=== PATIENT | female | born 1965 | race Caucasian/White ===

== ENCOUNTER 2019-09-21 19:53 | Emergency (ER) | payer OTHER, SELFPAY ==
[2019-09-21 19:55] VITALS: BP 132/58; PULSE 68; RESP 16; TEMP 36.9; O2SAT 100; BMI 22.8
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
[2019-09-21] MEDS: Ondansetron 4 MG/2 ML Vial IV (21:56)
[2019-09-21] MEDS: Meclizine HCl 25 MG Tablet PO (21:56)
[2019-09-21 22:05] LABS: Absolute Lymphocyte Count 0.95 X10^3/uL (0.83-4.51); Absolute Neutrophil Count 2.8 X10^3/uL (2.0-7.7); Basophil# 0.05 X10^3/uL; Basophil% 1.2 % (0-1); Eosinophil# 0.13 X10^3/uL; Eosinophils% 3.1 % (0-5); Hematocrit 37.1 % (37-47); Hemoglobin 12.1 g/dL (12.0-15.0); Lymphocyte # 0.95 X10^3/ul (4.0); Lymphocyte % 22.8 % (19-41); Mean Corp Hgb Conc 32.6 g/dL (32-36); Mean Corpuscular Hgb 31.3 pg (27.0-32.0); Mean Corpuscular Volume 95.9 fL (81-99); Mean Platelet Vol. 8.8 fl (6.2-12.0); Monocyte# 0.27 X10^3/uL; Monocyte% 6.5 % (0-10); NRBC Flagged by Analyzer 0 % (0-5); Neutrophil # 2.75 X10^3/uL (2.7-7.7); Neutrophil % 66.2 % (47-70); Platelet Count 275 K/mm3 (150-450); Red Blood Count 3.87 M/mm3 (4.2-5.4); White Blood Count 4.2 K/mm3 (4.4-11.0)
[2019-09-21 22:18] LABS: Anion Gap 5 (5-15); BUN 17 mg/dL (7-18); BUN/Creat Ratio 18.7 RATIO (10-20); Calcium,Total 8.5 mg/dL (8.5-10.1); Chloride 110 mmol/L (98-107); Creatinine, Serum 0.91 mg/dL (0.55-1.02); EST Glomerular Filtration Rate 68 mL/min (>60); Est Glom Filt Rate - Afr Amer 83 mL/min (>60); Estimated Creatinine Clearance 67.93 ml/min; Glucose 92 mg/dL (74-106); Potassium 3.5 mmol/L (3.5-5.1); Sodium Level 143 mmol/L (136-145)
[2019-09-21 22:29] VITALS: BP 123/79; PULSE 58; RESP 16; O2SAT 100
[2019-09-22 00:05] VITALS: PULSE 70; RESP 16; O2SAT 100
== END 2019-09-22 00:07 | disposition home or self-care (01) ==
PROVIDERS: Emergency Provider Emergency Medicine
DX: H81.399 Other peripheral vertigo, unspecified ear (principal)
CPT/HCPCS: 80048; 85025; 96374; 99285; A4216; J2405